=== PATIENT | female | born 1930 | race Caucasian/White ===

== ENCOUNTER → 2016-08-12 | Outpatient (CLI) | payer MEDICARE, OTHER ==
[~2016-08-12] MED LIST: ACET-2161 PO; AMLO5TAB PO; ASPI-558 PO; LABE100T19 PO; LABE200T PO; METF500T4 PO; NAPR-561 PO; PRAV40TA3 PO; SILV20CR2 TOP; TONIC WATER PO; UBID100C10 PO
--- NOTE | 2016-08-12 12:08 | DI ---
Indication: ITS.REASON: I65.23 CAROTID BRUIT PROCEDURE: US CAROTID DOPP COMPLETE: Comparison: August 10, 2015 TECHNIQUE: Grayscale, color and duplex Doppler imaging was performed of the carotid systems bilaterally. Velocities in cm/sec - validated velocity measurements with angiographic measurements, velocity criteria are extrapolated from diameter data as defined by the Society of Radiologists in Ultrasound Consensus Conference Radiology 2003; 229;340-346. RIGHT: PSV ICA 136 EDV ICA 21 PSV CCA 68 EDV CCA 16 SVR 2.0 PSV ECA 74 ICA Diameter reduction 50-60% LEFT: PSV ICA 190 EDV ICA 31 PSV CCA 68 EDV CCA 15 SVR 2.8 PSV ECA 116 ICA Diameter reduction 60-75% The right vertebral artery is patent with cephalic flow. The left vertebral artery is patent with cephalic flow. Scattered atherosclerotic plaque with increased proximal ICA velocities compared to the prior study. Bilateral common carotid intimal wall thickening. Calcified plaque in both carotid bulbs and proximal ICAs. 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 .
== END ==
LOC: IMA 10:25
PROVIDERS: ATTEND Internal Medicine Cardiovascular Disease
DX: I65.23 Occlusion and stenosis of bilateral carotid arteries (principal)

== ENCOUNTER 2016-08-20 07:24 | Day surgery (SDC) | payer MEDICARE, OTHER ==
[~2016-08-20] VITALS: Ht 157.5 cm; Wt 87.0 kg
[~2016-08-20 07:24] MED LIST changes: -LABE200T PO; -SILV20CR2 TOP; -TONIC WATER PO
--- OUTSIDE RECORDS SUMMARY | 2016-08-20 07:28 | XMS REPORT | Continuity of Care Document ---
Author Author [facility] Organization [facility] Address Unknown Phone Unavailable Support Name Relationship Address Phone FOX MAJOR MD Caregiver [address] [place] [address] Unavailable ERICKA RICHTER DO Caregiver [address] [place] [address] Unavailable MARY ALBA (DPOA) Next Of Kin [address] [place], [place] [id number] Insurance Providers Guarantor Hallie Gonzales Address [address] [place] [address] c Email DENIED 16 Payer Medicare Policy Number [id number] Subscriber's Name Hallie Gonzales Relationship 18 Self Effective Date 95 Payer [place] Policy Number [id number] Subscriber's Name Hallie Gonzales Relationship 18 Self Group Number [id number] Advance Directives Directive Response Recorded Date/Time Ordered Resuscitation Status Full Code 07/22/16 2:39pm Resuscitation Documents on File Yes 07/23/16 6:30am DPOA for Healthcare Only Yes 07/23/16 6:30am Living Will Yes 07/23/16 6:30am Problems Active Problems Medical Problem Onset Date Status Dehydration Unknown Acute Past Problems Medical Problem Onset Date Second degree burn of back Unknown Medications Current Home Medications Medication Dose Units Route Directions Days Qty Instructions Start Date Acetaminophen (Acetaminophen Extra Strength) 500 Mg Tablet 500 Mg Oral Every 6 Hours as needed for Pain 09/11/15 Amlodipine Besylate (Norvasc) 5 Mg Tablet 5 Mg Oral Daily Aspirin (Aspir 81) 81 Mg Tablet. 81 Mg Oral Bedtime 04/15/11 Labetalol Hcl 100 Mg Tablet 200 Mg Oral Twice A Day 04/11/13 Metformin Hcl 500 Mg Tablet 500 Mg Oral Twice A Day 09/11/15 Naproxen Sodium (Aleve) 220 Mg Tablet 220 Mg Oral Bid Prn Pravastatin Sodium 40 Mg Tablet 40 Mg Oral Bedtime 09/11/15 Silver Sulfadiazine (Silvadene) 20 Gm Cream..g. 1 Applic Topically Twice A Day 7 Days [address] Roberth Mendoza Chief Of Hospital Medicine * [facility] [address] [facility] [phone] 07/05/16 Tonic Water 8 Oz Oral Bedtime 09/11/15 Ubidecarenone (Coq-10) 100 Mg Capsule 100 Mg Oral Daily 09/11/15 Social History Social History Problem Response Recorded Date/Time Onset Date Status Chewing Tobacco Status No 04/13/2013 7:53am Not Applicable Not Applicable Hx Substance Use No 09/11/2015 12:45pm Not Applicable Not Applicable Hx Alcohol Use No 09/11/2015 12:45pm Not Applicable Not Applicable Has the pt used tobacco in the last 12 months No 04/13/2013 7:53am Not Applicable Not Applicable Tobacco Usage none 09/12/2015 10:29am Not Applicable Not Applicable Query Response Start Date Stop Date Smoking Status Never smoker Hospital Discharge Instructions No hospital discharge instructions. Plan of Care Discharge Date 07/23/16 9:20am Prescriptions See Medication Section Functional Status Query Response Date Recorded Ability to complete ADL's impeded by No change July 23, 2016 6:30am Allergies, Adverse Reactions, Alerts Allergen Type Severity Reaction Status Last Updated Iodinated Contrast Media - Oral and Allergy Unknown RASH AND HIVES Active 07/23/16 Angiotensin-converting enzyme inhibitor Allergy Severe Active 07/23/16 Immunizations Immunization Event Date Type Not Given Reason Dose Number Lot Number [employer] VIS Given Tdap 07/05/16 Administered 1 [id number] [employer] 07/04/14 Query Response on File Recorded Date/Time Hx Influenza Vaccination Y FEB 2013 04/13/13 7:53am Hx Pneumococcal Vaccination Y 200907/22/16 2:28pm Hx Influenza Vaccination Y FEB 2013 04/13/13 7:53am DTaP Vaccine History UNKNOWN 07/05/16 10:46am Influenza Vaccine Hx NO 07/05/16 10:46am Tdap Vaccine Hx [id number] 07/05/16 11:21am Vital Signs Acute Vital Signs Vital Response Date/Time Temperature (Fahrenheit) 97.4 deg F (96.8 - 99.1) 07/23/2016 8:24am Temperature (Calculated Celsius) 36.49561 degrees C (36.0 - 37.3) 07/23/2016 8:24am Temperature Source Temporal 07/23/2016 8:24am Pulse Rate (adult) 79 bpm (60 - 100) 07/23/2016 9:20am Respiratory Rate 20 breaths/min (10 - 20) 07/23/2016 9:20am O2 Sat by Pulse Oximetry 92 % (90 - 100) 07/23/2016 9:20am Oxygen Delivery Method Room Air 07/23/2016 9:20am Blood Pressure 154/81 mm Hg 07/23/2016 9:20am Blood Pressure Source Automatic Cuff 07/23/2016 9:20am Height (Feet) 5 feet 07/23/2016 6:23am Height (Inches) 2.00 inches 07/23/2016 6:23am Weight (Kilograms) 87.600 kg 07/23/2016 6:23am Body Mass Index (BMI) 35.3 07/23/2016 6:23am Results Laboratory Results Test Name Result Units Flags Reference Collection Date/Time Result Date/ Time Comments Glucometer 102 mg/dL 65-110 07/23/2016 6:20am 07/23/2016 6:23am Procedures Procedure Status Date Provider(s) Cataract extraction, left Completed 07/23/16 FOX MAJOR MD Encounters Encounter Location Arrival/Admit Date Discharge/Depart Date Attending Provider Departed [facility] Day Care [facility] 07/23/16 6:03am 07/23/16 9: 20am FOX MAJOR MD Departed Emergency Room [facility] 07/05/16 10:31am 07/05/16 11: 28am SWETHA VARGAS APRN
--- OUTSIDE RECORDS SUMMARY | 2016-08-20 07:28 | XMS REPORT | Continuity of Care Document ---
Author Author [facility] Organization [facility] Address Unknown Phone Unavailable Allergies Medications Problems Date Dx Coded Attending Type Code Diagnosis Diagnosed By 07/29/2012 Hernando Cardenas MD Final 433.10 CAROTID OCCL S INFARCT 07/29/2012 Hernando Cardenas MD Final 433.30 MULT PREC OCCL S INFARCT 07/29/2012 Hernando Cardenas MD Admitting 433.10 CAROTID OCCL S INFARCT Procedures Results Encounters ACCT No. Visit Date/Time Discharge Status Pt. Type Provider Facility Loc./Unit Complaint [id number] 07/29/2012 09:44:00 2012 23:59:59 CLS Outpatient Hernando Cardenas MD [facility]
[2016-08-20 07:50] VITALS: Ht 157.5 cm; Wt 87.0 kg
[2016-08-20 07:51] VITALS: BP 134/63; PULSE 59; RESP 18; TEMP 96.9; O2SAT 93
[2016-08-20] MEDS: PHENYLEPHRINE 2.5% EYE DROPS 5ml RIGHT EYE SCH ×3 (08:02→08:16)
[2016-08-20] MEDS: CYCLOPENTOLATE 1% EYE DROPS 2 ML BOTTLE RIGHT EYE SCH ×3 (08:02→08:16)
[2016-08-20] MEDS: TROPICAMIDE 1% EYE DROPS 3ml RIGHT EYE SCH ×3 (08:03→08:16)
[2016-08-20] MEDS: GATIFLOXACIN 0.5% EYE DROPS 2.5ml RIGHT EYE SCH ×3 (08:03→08:16)
[2016-08-20] MEDS ORDERED: LABE200T PO (08:15)
[2016-08-20 08:21] VITALS: O2SAT 87
[2016-08-20 08:22] VITALS: O2SAT 92
[2016-08-20] MEDS ORDERED: MIDAZOLAM 2mg/2ml INJECTION ONE (09:02)
[2016-08-20] MEDS ORDERED: SALINE FLUSH 10ml SYRINGE ONE (09:16)
--- NOTE | 2016-08-20 09:19 | ANESPREOP ---
Anesthesia Record Date and Time DATE: 08/20/16 TIME: 0900 Proposed Surgical Procedure CATARACT EXTRACION WITH IOL OD Allergies: Coded Allergies: MABEL Inhibitors (Verified Allergy, Severe, 08/20/16) lips swell Iodinated Contrast Media - Oral and (Verified Allergy, Unknown, RASH AND HIVES, 08/20/16) Ht/Wt/BMI Height: 5 ' 2.00 " Weight: 87.000 kg BMI: 35.1 kg/m2 Vital Signs Date Time Temp Pulse Resp B/P Pulse Ox O2 Delivery O2 Flow Rate FiO2 08/20/16 08:22 92 Nasal Cannula 2.00 08/20/16 07:51 96.9 59 18 134/63 Medications Inpatient Medications Current Medications Medications (Trade) Dose Ordered Sig/Jessa Start Time Stop Time Status Last Admin Dose Admin Gatifloxacin (Zymaxid) 1 drop Q5M 08/20/16 17:00 08/20/16 17:11 08/20/16 08:16 1 DROP Cyclopentolate HCl (Cyclate 1%) 1 drop Q5M 08/20/16 17:00 08/20/16 17:11 08/20/16 08:16 1 DROP Tropicamide (Mydriacyl 1% Eye Drops) 1 drop Q5M 08/20/16 17:00 08/20/16 17:11 08/20/16 08:16 1 DROP Phenylephrine HCl (Rex-Synephrine 2.5% Eye Drops) 1 drop Q5M 08/20/16 17:00 08/20/16 17:11 08/20/16 08:16 1 DROP Acetaminophen (Acetaminophen Extra Strength) 500 Mg Tablet, 500 MG PO Q6H PRN for PAIN, (Reported) Last Taken: on 08/18/16 Amlodipine (Norvasc) 5 Mg Tablet, 5 MG PO DAILY, ( Reported) Last Taken: on 08/19/16 0900 Aspirin (Aspir 81) 81 Mg Tablet.dr, 81 MG PO HS , (Reported) Last Taken: on 08/12/16 Labetalol HCl (Labetalol HCl) 200 Mg Tablet, 1 TAB PO BID, (Reported) Last Taken: on 08/20/16 0630 Metformin HCl (Metformin HCl) 500 Mg Tablet, 500 MG PO BID, (Reported) Last Taken: on 08/19/16 2230 Naproxen Sodium (Aleve) 220 Mg Tablet, 220 MG PO BID PRN, (Reported) Last Taken: on Unknown Date & Time Pravastatin Sodium (Pravastatin Sodium) 40 Mg Tablet, 40 MG PO HS, (Reported) Last Taken: on 08/19/16 2230 Ubidecarenone (Coq-10) 100 Mg Capsule, 100 MG PO DAILY, (Reported) Last Taken: on 08/12/16 Currently on Beta Tiarra: Yes Beta Tiarra Last Taken: Labetolol 200mg 08/20/16 at 0630 Medical/Surgical History Anesthesia PMH: Reports: *Diabetes (BORDERLINE), *Hypertension (well controlled ), Arthritis (RA), Cancer (SQUAMOUS CELL), Renal Disease (HAS STENTS IN RENAL ARTERIES), Denies: *Angina, *Dyspnea, *AZ, Anesthesia Reactions, Asthma, Blood Transfusion Reac, CHF, COPD, CVA/Stroke/TIA, Clotting Problems, Deep Vein Thrombosis, Glaucoma, Malignant Hyperthermia, Pneumonia, Rheumatic Fever, Seizures, Sleep Apnea, Thyroid Disease, Tuberculosis Smoking Status: Never smoker Use Chewing Tobacco?: No Second Hand Exposure: No Substance Use Type: does not use Substance last used: unknown Alcohol Intake: rarely Last Drink: unknown HX of Last Menstrual Period: HYST. Past Surgical History Orthopedic Surgeries: Abdominal Surgeries: Yes - APPY; COLON RESECT?-FOR INTESTINAL BLOCK Genitourinary Surgeries: Yes - RENAL STENTS Cardiac Surgeries: Endocrine Surgeries: Reproductive Surgeries: Yes - ROYAL,BSO,RUPTURED OVARIAN CYST Neurological Surgeries: Ear Surgeries: Nose Surgeries: Throat Surgeries: Other Surgeries: Yes - C SCOPE; SCC REMOVED FROM WRIST Anesthesia Adverse Reactions: FOUND none Family Hx of Anesthesia Advers: none Hx of Motion Sickness: No Pertinent Findings EKG Rhythm: Sinus Arhythmia Physical Exam Respiratory: Lungs clear Cardiovascular: FOUND Regular rate, rhythm Airway Assessment Mallampati Score: II TMD: 3 Fingerbreadths Neck Extension: Poor Teeth: Other (partials out) Overall Assessment: No Airway Concerns ASA: 3 Plan Anesthesia Plan: MAC Discussion Discussed risks/options/alternatives of anesthesia and questions answered. Patient consents. Nursing pain assessment noted. Present: Friend Attestation Statement Prior to the delivery of any anesthetic medication, I examined the patient, developed the plan, obtained the patient's consent and discussed the risk and benefits of the procedure with the patient/guardian. DAPHNE HARGROVE CRNA Aug 20, 2016 09:19
[2016-08-20 09:55] VITALS: BP 178/79; PULSE 71; RESP 12; TEMP 97.2; O2SAT 97
[2016-08-20 10:10] VITALS: BP 177/72; PULSE 76; RESP 19; O2SAT 92
[2016-08-20] MEDS ORDERED: acetaZOLAMIDE SR 500 MG CAPSULE PO ONE (10:15)
[2016-08-20 10:29] VITALS: BP 143/62; PULSE 74; RESP 22; O2SAT 92
--- NOTE | 2016-08-20 10:36 | ANESPO ---
Post-Op Note Date 08/20/16 Time: 10:10 Status Pt Participated in Evaluation: Pt participated in person Vital Signs Date Time Temp Pulse Resp B/P Pulse Ox O2 Delivery O2 Flow Rate FiO2 08/20/16 10:29 74 22 143/62 92 Room Air 08/20/16 09:55 97.2 08/20/16 08:22 2.00 Respiratory Function: Airway patent Mental Status: Alert/oriented Pain Level Intensity: 0 Hydration: Taking po fluids Complications during Recovery None apparent Follow-Up Instructions Instructions Per Surgeon ANA LUISA SHERMAN CRNA Aug 20, 2016 10:36
[2016-08-20] MEDS ORDERED: EPINEPHRINE 1mg/ml Pres.Free vl IO ONE ×2 (15:28→15:30)
[2016-08-20] MEDS ORDERED: ACETYLCHOLINE (MIOCHOL-E) OCULAR SYSTEM IO ONE (15:28)
[2016-08-20] MEDS ORDERED: BRIMONIDINE 0.2% EYE DROPS 5ml BOTH EYES ONE (15:28)
[2016-08-20] MEDS ORDERED: TETRACAINE 0.5% EYE DROPS 4ml BOTTLE OP ONE (15:30)
[2016-08-20] MEDS ORDERED: LIDOCAINE 1% (10mg/ml) 30ml SDV ID ONE (15:30)
[2016-08-20] MEDS ORDERED: BALANCED SALT SOLUTION 15ml IRRIGATION IO ONE (15:30)
[2016-08-20] MEDS ORDERED: PrednisoLONE 1% EYE DROPS 5ml RIGHT EYE ONE (15:30)
[2016-08-20] MEDS ORDERED: LIDOCAINE 4% (40mg/ml) INJ. PF 5ml AMP ID ONE (15:30)
[2016-08-20] MEDS ORDERED: NS FOR INJ. 20 ML VIAL INJ ONE (15:30)
[2016-08-20] MEDS ORDERED: VANCOMYCIN 500 MG INJECTION IO ONE (15:30)
[2016-08-20] MEDS ORDERED: LIDOCAINE 3.5% EYE GEL PF 1ml OP ONE (17:00)
[2016-08-20] MEDS ORDERED: LIDOCAINE 1% (10mg/ml) 2ml SDV INJ ONE (17:00)
--- NOTE | 2016-08-21 23:04 | OPNOTEF ---
DATE OF OPERATION 08/20/2016 PREOPERATIVE DIAGNOSIS Visually significant cataract, right eye. POSTOPERATIVE DIAGNOSIS Visually significant cataract, right eye. PROCEDURE Cataract extraction by phacoemulsification with insertion of posterior chamber intraocular lens, right eye. SURGEON Dr. Rmairo Snow DESCRIPTION OF PROCEDURE The patient was given topical ophthalmic dilating drops, 2.5% phenylephrine, 1% tropicamide, 1% cyclopentolate, topical antibiotic drop Zymaxid and topical 2% Xylocaine gel q. 5 minutes x 3 prior to arrival to the OR into the right eye. In the OR the area about the right eye was prepped and draped in the usual sterile fashion. The procedure began and was done entirely under the operating microscope. A sterile lid speculum was placed into the right eye and removed at the end of the procedure. Drops of vancomycin were placed onto the eye since the patient had a Betadine allergy. Using a 1.2 mm blade, two paracentesis side ports were made approximately 180 degrees apart. 1% preservative-free lidocaine was instilled into the eye followed by Viscoat. Using a 2.4-mm keratome, a temporal clear corneal incision was made. 1 mg of vancomycin was instilled into the eye at this point. Using a cystotomy, a capsulorhexis forceps and anterior capsulotomy was made. The lens nucleus was then loosened from surrounding cortical material by hydrodissection. Phacoemulsification handpiece was then introduced into the eye and the lens nucleus was successfully phacoemulsified using 6.79 CDE units of phacoemulsification power. Hydrodissection was done again to loosen cortical material from the capsule and the irrigation-aspiration handpieces were used to strip away all cortical material. The eye was then filled with Provisc and a HOYA lens model #250 with a power of 19.0 diopters was inserted in the capsular bag of the right eye and centered. Viscoelastics were removed with the irrigation-aspiration handpieces. Then Miochol was instilled into the eye and the pupil came down to approximately 4 mm. 1 mg of vancomycin dissolved in 0.1 cc of normal saline was instilled into the eye. The incisions were hydrated to seal them and were tested and noted to be watertight. Drops of Zymaxid, Pred Forte and brimonidine were dropped onto the right eye and a shield taped over the eye, completing the procedure. Blood loss was minimal, less than 0.1 cc. There were no complications, and the patient left the operating room in good condition. ALMAZ
== END 2016-08-20 10:43 | disposition home or self-care (01) ==
LOC: NSC 07:24
PROVIDERS: ATTEND Ophthalmology
DX: H25.811 Combined forms of age-related cataract, right eye (principal); I10 Essential (primary) hypertension; E78.5 Hyperlipidemia, unspecified; M06.9 Rheumatoid arthritis, unspecified; Z79.82 Long term (current) use of aspirin; Z79.899 Other long term (current) drug therapy; Z79.84 Long term (current) use of oral hypoglycemic drugs; Z88.8 Allergy status to other drugs, medicaments and biological substances; Z91.041 Radiographic dye allergy status; Z85.828 Personal history of other malignant neoplasm of skin; Z90.710 Acquired absence of both cervix and uterus
CPT/HCPCS: 66984; 82948; A9270; C1780; J0171; J2250; J3370